=== PATIENT | male | born 1970 | race Caucasian/White ===

== ENCOUNTER 2021-03-25 17:40 | Emergency (ER) | payer OTHER ==
[2021-03-26 02:57] LABS: HEMOGLOBIN 15.7 gm/dl (14.0-17.5); RED BLOOD COUNT 5.02 M/UL (4.20-5.50); WHITE BLOOD COUNT 6.5 K/UL (4.5-11.0)
[2021-03-26 03:11] LABS: BUN/CREATININE RATIO 18 (0-10)
== END 2021-03-26 07:10 | disposition home or self-care (01) ==
LOC: ER1 17:40
PROVIDERS: Physician Assistant
DX: Z23 Encounter for immunization (principal); U07.1 COVID-19; E86.0 Dehydration; E87.6 Hypokalemia; D69.6 Thrombocytopenia, unspecified
CPT/HCPCS: 71045; 80053; 85025; 94760; 96374; 99285; J2405; M0243

== ENCOUNTER → 2021-03-28 | Outpatient (CLI) | payer OTHER ==
[2021-03-28 13:12] LABS: RED BLOOD COUNT 4.84 M/UL (4.20-5.50); WHITE BLOOD COUNT 6.1 K/UL (4.5-11.0)
== END ==
LOC: LAB 12:24
DX: D69.6 Thrombocytopenia, unspecified (principal); U07.1 COVID-19
CPT/HCPCS: 85025